=== PATIENT | male | born 1975 | race Caucasian/White ===

== ENCOUNTER 2019-08-16 23:40 | Emergency (ER) | payer SELFPAY ==
--- NOTE | 2019-08-17 00:10 | ED ---
Throat Pain/Nasal Congestion - HPI Summary HPI Summary: Patient presents with right side facial swelling 3 days. Concern for dental abscess. Patient has history of bad dental hygiene and multiple dental caries. Denies trauma, known fever, cough, sore throat, CP, SOB, N/V/D, abdominal pain , change in urine, change in BM. - History of Current Complaint Chief Complaint: EDDentalPain Time Seen by Provider: 08/17/19 00:08 Hx Obtained From: Patient Onset/Duration: Gradual Onset, Lasting Days Severity: Moderate Associated Signs And Symptoms: Positive: Negative Cough: None - Allergies/Home Medications Allergies/Adverse Reactions: Allergies Allergy/AdvReac Type Severity Reaction Status Date / Time No Known Allergies Allergy Verified 08/16/19 23:43 Home Medications: Home Medications Acetaminophen 625 mg PO ONCE 08/17/19 [History Confirmed 08/17/19] PMH/Surg Hx/FS Hx/Imm Hx Endocrine/Hematology History: Denies: Hx Anticoagulant Therapy Cardiovascular History: Denies: Hx Pacemaker/ICD History: Denies: Hx Dialysis Sensory History: Denies: Hx Eye Prosthesis Opthamlomology History: Denies: Hx Legally Blind EENT History: Denies: Hx Deafness Infectious Disease History: No Infectious Disease History: Denies: Traveled Outside the [place] in Last 30 Days - Family History Known Family History: Negative: Non-Contributory - Social History Alcohol Use: Occasionally Hx Substance Use: Yes - former IV drug user. Stopped years ago. Hx Tobacco Use: No Review of Systems Constitutional: Negative Eyes: Negative ENT: Other Cardiovascular: Negative Respiratory: Negative Gastrointestinal: Negative Genitourinary: Negative Musculoskeletal: Negative Skin: Negative Neurological: Negative Psychological: Normal All Other Systems Reviewed And Are Negative: Yes Physical Exam - Summary Physical Exam Summary: Swelling to right side posterior jaw. No intraoral lesions, apical abscess noted. No intraoral lesions noted. Multiple dental caries. No evidence of mastoiditis. ENT exam unremarkable. Triage Information Reviewed: Yes Vital Signs On Initial Exam: Initial Vitals Temp Pulse Resp BP Pulse Ox 102 F 134 15 151/99 98 08/16/19 23:42 08/16/19 23:42 08/16/19 23:42 08/16/19 23:42 08/16/19 23:42 Vital Signs Reviewed: Yes Appearance: Positive: Well-Appearing Skin: Positive: Warm Head/Face: Positive: Normal Head/Face Inspection Eyes: Positive: Normal ENT: Positive: Normal ENT inspection Neck: Positive: Supple Respiratory/Lung Sounds: Positive: Clear to Auscultation Cardiovascular: Positive: Normal Abdomen Description: Positive: Nontender Musculoskeletal: Positive: Normal Neurological: Positive: Normal Psychiatric: Positive: Normal AVPU Assessment: Alert - Mary Coma Scale Best Eye Response: 4 - Spontaneous Best Motor Response: 6 - Obeys Commands Best Verbal Response: 5 - Oriented Coma Scale Total: 15 Procedures - Sedation Patient Received Moderate/Deep Sedation with Procedure: No Diagnostics - Vital Signs Vital Signs Temp Pulse Resp BP Pulse Ox 08/16/19 23:42 102 F 134 15 151/99 98 - Laboratory Result Diagrams: 08/17/19 00:38 08/17/19 00:38 Lab Statement: Any lab studies that have been ordered have been reviewed, and results considered in the medical decision making process. Re-Evaluation - Re-Evaluation First Eval Re-Evaluation Time: 03:38 Change: Improved Comment: At 03:38, patient is sitting on the bed comfortably. The swelling and erythema of the parotid is improved. Patient states the swelling has lessened since being in the ED. EENT Course/Dx - Course Course Of Treatment: Patient presents with right side facial swelling 3 days. Concern for dental abscess. Patient has history of bad dental hygiene and multiple dental caries. Denies trauma, known fever, cough, sore throat, CP, SOB , N/V/D, abdominal pain, change in urine, change in BM. Febrile 102 in triage. Mildly tachycardic. Vital signs otherwise within normal limits. WBC 13.3. CRP 71. Potassium 3.2. 40 mEq of potassium by mouth administered. Maxillofacial CT with contrast positive for right parotid sialolith adenitis secondary to an obstructing stone located in the distal aspect of the parotid duct. The stone measures 1.1 cm in length and 6 mm in width. Associated inflammation of the right parotid gland and adjacent tissues. Associated cervical adenopathy. No lymph node necrosis. Multiple carious teeth with associated periapical lucency. No associated walled off fluid collection within the right parotid gland. Abnormal thickening of the right latissimus muscle. Extensive subcutaneous inflammation in the right side of the cheek overlying the parotid gland extending into the jaw. Patient mentioned chest pain after application of morphine, and former history of IV drug use. EKG and troponins were obtained. All negative. EKG sinus rhythm, no prior file. No ENT coverage. Phone call out to Dr Liu ENT at [facility]. - Diagnoses Provider Diagnoses: Parotitis, Calculus of parotid gland duct Discharge ED - Sign-Out/Discharge Documenting (check all that apply): Sign-Out Patient Signing out patient TO: Kerry Schultz - Discharge Plan Condition: Stable Referrals: [facility] [Outside] - Billing Disposition and Condition Condition: STABLE
[2019-08-17] MEDS ORDERED: Morphine 4 MG/ML VIAL (1 ml) 4 MG/ML VIAL IV ONE (00:17)
[2019-08-17] MEDS ORDERED: Ondansetron INJ* 2 MG/ML VIAL IV ONE (00:17)
[2019-08-17] MEDS ORDERED: Ibuprofen ADULT LIQ* 600 MG/30 ML UDC PO ONE (00:17)
[2019-08-17] MEDS ORDERED: NS 0.9% 1000 ML** 1,000 ML IV ONE (00:18)
[2019-08-17] MEDS ORDERED: Ibuprofen TAB* 600 MG ONE (00:44)
[2019-08-17] MEDS ORDERED: Ibuprofen TAB* 600 MG PO ONE (00:49)
[2019-08-17 00:54] LABS: ABS Lymphocytes 0.9 10^3/ul (1.0-4.8); ABS Monocytes 0.3 10^3/ul (0-0.8); ABS Neutrophils 12.1 10^3/ul (1.5-7.7); Eosinophil % 0.3 %; Hematocrit 44 % (42-52); Hemoglobin 15.2 g/dL (14.0-18.0); Lymphocyte % 6.6 %; Mean Corpuscular HGB Conc 35 g/dL (31-36); Mean Corpuscular Hemoglobin 30 pg (27-31); Mean Corpuscular Volume 86 fL (80-94); Mean Platelet Volume 7.8 fL (7.4-10.4); Platelet Count 215 10^3/uL (150-450); Red Cell Distribution Width 13 % (10-15); White Blood Count 13.3 10^3/uL (3.5-10.8)
[2019-08-17 01:06] LABS: Albumin 4.6 g/dL (3.2-5.2); Albumin/Globulin Ratio 1.3 (1-3); BUN/Creatinine Ratio 10.2 (8-20); C Reactive Protein 71.83 mg/L (<8.01); Calcium 9.3 mg/dL (8.6-10.3); EGFR African American 114.4 (>60); EGFR Non-African American 94.5 (>60); Globulin 3.6 g/dL (2-4); Potassium 3.2 mmol/L (3.5-5.0); Total Bilirubin 1.1 mg/dL (0.2-1.0); Total Protein 8.2 g/dL (6.4-8.9)
[2019-08-17] MEDS ORDERED: Iohexol 300* (CONTRAST) 10 ML SDV IV ONE (01:17)
[2019-08-17] MEDS ORDERED: Potassium Chlor TAB* 20 MEQ TAB.ER PO ONE (02:19)
[2019-08-17 03:02] LABS: Urine Appearance Clear; Urine Bilirubin Negative (Negative); Urine Blood 1+ (Negative); Urine Color Yellow; Urine Glucose Negative (Negative); Urine Ketones 1+ (Negative); Urine Nitrite Negative (Negative); Urine Protein Negative (Negative); Urine Specific Gravity 1.026 (1.010-1.030); Urine Urobilinogen Positive (Negative)
[2019-08-17 03:10] LABS: Urine Bacteria Absent (Absent); Urine Red Blood Cell Trace(0-2/hpf) (Absent); Urine White Blood Cell Absent (Absent)
[2019-08-17 03:16] LABS: Troponin I 0.01 ng/mL (<0.03)
[2019-08-17 03:19] LABS: Urine Benzodiazepine Screen None Detected (None Detect); Urine Opiates Screen Presumptive Positive (None Detect)
--- NOTE | 2019-08-17 03:54 | ED ---
Progress - Progress Note Progress Note: Patient is a sign-out at 02:30 on 08/17/19 from TY Arriaza to Dr. Kerry Schultz MD at shift change, pending further workup and disposition. At 03:38, patient is sitting on the bed comfortably. The swelling and erythema of the parotid is improved. Patient states the swelling has lessened since being in the ED. In the ED course, patient was given ibuprofen 600 mg PO and Flagyl 500 mg IVPB. At 04:39, Dr. Sully Liu at [facility] recommends the patient follow up in outpatient and be given IV antibiotics. Patient will be discharged with a diagnosis of parotitis and sialoidenitis. Follow up with Dr. Liu. Re-Evaluation - Re-Evaluation First Eval Re-Evaluation Time: 03:38 Change: Improved Comment: At 03:38, patient is sitting on the bed comfortably. The swelling and erythema of the parotid is improved. Patient states the swelling has lessened since being in the ED. Course/Dx - Course Course Of Treatment: Patient is a sign-out at 02:30 on 08/17/19 from TY Arriaza to Dr. Kerry Schultz MD at shift change, pending further workup and disposition. At 03:38, patient is sitting on the bed comfortably. The swelling and erythema of the parotid is improved. Patient states the swelling has lessened since being in the ED. In the ED course, patient was given ibuprofen 600 mg PO and Flagyl 500 mg IVPB. At 04:39, Dr. Sully Liu at [facility] recommends the patient follow up in outpatient and be given IV antibiotics. Patient will be discharged with a diagnosis of parotitis and sialoidenitis. Follow up with Dr. Liu. - Diagnoses Provider Diagnoses: Parotitis, Calculus of parotid gland duct, Sialoadenitis - Provider Notifications Discussed Care Of Patient With: Sully Liu - At 04:39, Dr. Sully Liu at [facility] recommends the patient follow up in outpatient and be given IV antibiotics. Time Discussed With Above Provider: 04:39 Instructed by Provider To: Have Pt Call For Appt. Discharge ED - Sign-Out/Discharge Documenting (check all that apply): Patient Departure - Discharge, Receiving Sign-Out Receiving patient FROM: David Dallas - Patient is a sign-out at 02:30 on from TY Arriaza to Dr. Kerry Schultz MD at shift change, pending further workup and disposition. - Discharge Plan Condition: Stable Disposition: HOME Prescriptions: Amoxicillin/Clavulanate TAB* [Augmentin TAB 875*] 875 mg PO BID 10 Days #20 tab Patient Education Materials: Sialoadenitis (ED) Print Language: DIVEHI Referrals: [facility] [Outside] Additional Instructions: Follow-up with Dr. Liu, ENT. Call her office at [phone] today to schedule an appointment. - Billing Disposition and Condition Condition: STABLE Disposition: Home - Attestation Statements Document Initiated by Gricelibe: Yes Documenting Scribe: Theresa Mariee Provider For Whom Scribe is Documenting (Include Credential): Kerry Lord MD Scribe Attestation: I, Theresa Mariee, scribed for Kerry Schultz MD on 08/17/19 at 0708. Scribe Documentation Reviewed: Yes Provider Attestation: The documentation as recorded by the Theresa cortez accurately reflects the service I personally performed and the decisions made by me, Kerry Schultz MD Status of Scribe Document: Viewed
[2019-08-17] MEDS ORDERED: metroNIDAZOLE IV 500 MG/100ML* 500 MG/100 ML BAG IVPB ONE (04:42)
[2019-08-17] MEDS ORDERED: CEFUROXIME IVPB SCH (05:30)
[2019-08-17] MEDS ORDERED: NS 0.9% IVPB SCH (05:30)
[2019-08-17 07:27] VITALS: BP 131/73
--- NOTE | 2019-08-18 01:13 | ED ---
Imaging and Labs Follow Up Follow Up Type: Labs/Cultures Labs/Culture Result: Blood cultures returned showing gram-positive cocci possibly strep 2. Patient was given Augmentin. Awaiting culture and sensitivity. Patient Communication/Plan: Awaiting culture and sensitivity report. Provider Diagnoses: Parotitis, Calculus of parotid gland duct, Sialoadenitis
== END 2019-08-17 07:33 | disposition home or self-care (01) ==
LOC: ED 23:40
DX: K11.20 Sialoadenitis, unspecified (principal); K11.5 Sialolithiasis
CPT/HCPCS: 36415; 70487; 80053; 80307; 80320; 81003; 81015; 83605; 84484; 85025; 86140; 87040; 93005; 96361; 96365; 96367; 96375; 99284; A9270-GY; G0480; J0697; J2270; J2405; Q9967

== ENCOUNTER 2019-08-19 16:30 | Inpatient (IN) | payer SELFPAY ==
--- NOTE | 2019-08-19 17:01 | ED ---
Throat Pain/Nasal Congestion - HPI Summary HPI Summary: Patient was seen here on 08/17 facial swelling and pain x 3 days. Diagnosed with parotiditis, sialoadenitis, and calculus of parotid duct. [facility] at [facility] was consulted, and patient was discharged home on by mouth antibiotics. Blood cultures came back positive for Streptococcus, patient was called and has return to the hospital. Complains of increased right-sided facial swelling, headache, decreased by mouth intake due to increased swelling. Denies any other symptoms, pain or injuries at this time. Medical history is none. Pending appointment with [facility] next week. States former IV drug user, but has not used in years. Brother confirms this. - History of Current Complaint Chief Complaint: EDDentalPain Time Seen by Provider: 08/19/19 16:40 Hx Obtained From: Patient, Family/Sewing Supervisor Onset/Duration: Gradual Onset, Lasting Days Severity: Moderate Associated Signs And Symptoms: Positive: Negative Cough: None - Allergies/Home Medications Allergies/Adverse Reactions: Allergies Allergy/AdvReac Type Severity Reaction Status Date / Time No Known Allergies Allergy Verified 08/19/19 16:34 PMH/Surg Hx/FS Hx/Imm Hx Endocrine/Hematology History: Denies: Hx Anticoagulant Therapy, Hx Diabetes Cardiovascular History: Denies: Hx Hypertension, Hx Pacemaker/ICD History: Denies: Hx Dialysis, Hx Renal Disease Sensory History: Denies: Hx Eye Prosthesis, Hx Legally Blind, Hx Deafness Opthamlomology History: Denies: Hx Eye Prosthesis, Hx Legally Blind EENT History: Denies: Hx Deafness Neurological History: Denies: Hx Dementia Infectious Disease History: No Infectious Disease History: Denies: Traveled Outside the [place] in Last 30 Days - Family History Known Family History: Negative: Non-Contributory - Social History Alcohol Use: Occasionally Hx Substance Use: Yes - former IV drug user. Stopped years ago. Substance Use Type: Reports: None Hx Tobacco Use: No Smoking Status (MU): Former Smoker Review of Systems Constitutional: Negative Eyes: Negative ENT: Other Cardiovascular: Negative Respiratory: Negative Gastrointestinal: Negative Genitourinary: Negative Musculoskeletal: Negative Skin: Negative Positive: Headache Psychological: Normal All Other Systems Reviewed And Are Negative: Yes Physical Exam - Summary Physical Exam Summary: Right-sided lower facial swelling. No evidence of intraoral abscess. Limited range of motion of jaw. Triage Information Reviewed: Yes Vital Signs On Initial Exam: Initial Vitals Temp Pulse Resp BP Pulse Ox 97.9 F 86 15 171/116 98 08/19/19 16:32 08/19/19 16:32 08/19/19 16:32 08/19/19 16:32 08/19/19 16:32 Vital Signs Reviewed: Yes Appearance: Positive: Well-Appearing Skin: Positive: Warm Head/Face: Positive: Normal Head/Face Inspection Eyes: Positive: Normal ENT: Positive: Other Dental: Positive: Gross Decay/Caries @ Neck: Positive: Supple Respiratory/Lung Sounds: Positive: Clear to Auscultation Cardiovascular: Positive: Normal Abdomen Description: Positive: Nontender Musculoskeletal: Positive: Normal Neurological: Positive: Normal Psychiatric: Positive: Normal AVPU Assessment: Alert - Mary Coma Scale Best Eye Response: 4 - Spontaneous Best Motor Response: 6 - Obeys Commands Best Verbal Response: 5 - Oriented Coma Scale Total: 15 Procedures - Sedation Patient Received Moderate/Deep Sedation with Procedure: No Diagnostics - Vital Signs Vital Signs Temp Pulse Resp BP Pulse Ox 08/19/19 16:32 97.9 F 86 15 171/116 98 - Laboratory Result Diagrams: 08/19/19 17:12 08/19/19 17:12 Lab Statement: Any lab studies that have been ordered have been reviewed, and results considered in the medical decision making process. EENT Course/Dx - Course Course Of Treatment: Patient was seen here on 08/17 facial swelling and pain x 3 days. Diagnosed with parotiditis, sialoadenitis, and calculus of parotid duct. ENT at [facility] was consulted, and patient was discharged home on by mouth antibiotics. Blood cultures came back positive for Streptococcus, patient was called and has return to the hospital. Complains of increased right -sided facial swelling, headache, decreased by mouth intake due to increased swelling. Denies any other symptoms, pain or injuries at this time. Medical history is none. Pending appointment with [facility] ENT next week. Elevated BP in triage at 171/116. Vital signs otherwise within normal limits. WBC 10, improved from prior visits 13.3. CRP 141. Labs otherwise unremarkable. Admitted to hospitalist Dr. Wells. ENT Dr. Cordova will consult. - Diagnoses Provider Diagnoses: Bacteremia, Parotitis, Sialoadenitis, Calculus of parotid gland duct Discharge ED - Sign-Out/Discharge Documenting (check all that apply): Patient Departure - Discharge Plan Condition: Stable Disposition: ADMITTED TO [facility] Referrals: No Primary Care Phys,NOPCP [Primary Care Provider] - - Billing Disposition and Condition Condition: STABLE Disposition: Admitted to [facility]
[2019-08-19] MEDS: NS 0.9% 1000 ML** 2,000 ML IV ONE (17:19)
[2019-08-19] MEDS ORDERED: Morphine 4 MG/ML VIAL (1 ml) 4 MG/ML VIAL IV ONE (17:21)
[2019-08-19] MEDS ORDERED: Ondansetron INJ* 2 MG/ML VIAL IV ONE (17:21)
[2019-08-19] MEDS ORDERED: Cefepime(*) 2 GM in NS 0.9% 50 ML* 50 ML IVPB ONE (17:21)
[2019-08-19 17:25] LABS: ABS Eosinophils 0.1 10^3/ul (0-0.6); ABS Lymphocytes 1.5 10^3/ul (1.0-4.8); ABS Monocytes 0.9 10^3/ul (0-0.8); ABS Neutrophils 7.4 10^3/ul (1.5-7.7); Eosinophil % 0.6 %; Hematocrit 47 % (42-52); Hemoglobin 15.9 g/dL (14.0-18.0); Lymphocyte % 15.3 %; Mean Corpuscular HGB Conc 34 g/dL (31-36); Mean Corpuscular Hemoglobin 29 pg (27-31); Mean Corpuscular Volume 87 fL (80-94); Mean Platelet Volume 7.7 fL (7.4-10.4); Nucleated Red Blood Cells % 0.1; Platelet Count 250 10^3/uL (150-450); Red Blood Count 5.41 10^6 /uL (4.18-5.48); Red Cell Distribution Width 13 % (10-15)
[2019-08-19] MEDS ORDERED: NS 0.9% 50 ML* 50 ML ONE (17:26)
[2019-08-19 17:34] LABS: Activated Partial Thrombo Time 36.2 seconds (26.0-38.0); INR 1.23 (0.82-1.09)
[2019-08-19 17:39] LABS: Albumin 4.5 g/dL (3.2-5.2); C Reactive Protein 141.38 mg/L (<8.01); Calcium 9.5 mg/dL (8.6-10.3); EGFR African American 122.4 (>60); EGFR Non-African American 101.1 (>60); Globulin 4.3 g/dL (2-4); Potassium 4.1 mmol/L (3.5-5.0); Total Bilirubin 0.7 mg/dL (0.2-1.0); Total Protein 8.8 g/dL (6.4-8.9)
[2019-08-19 17:41] LABS: Troponin I 0.01 ng/mL (<0.03)
[2019-08-19] MEDS ORDERED: Cefepime 2 GM in Dextrose(*) 2 GM/50 ML BAG IV ONE (18:00)
[2019-08-19] MEDS ORDERED: Lidocaine 2% w/ EPI 1:200,000* 20 ML SDV VIAL ONE (18:22)
[2019-08-19] MEDS: Ketorolac INJ* 30 MG/ML 1 ML VIAL IV PUSH PRN (18:26)
[2019-08-19 18:28] LABS: Urine Appearance Clear; Urine Bilirubin Negative (Negative); Urine Blood 2+ (Negative); Urine Color Yellow; Urine Glucose Negative (Negative); Urine Ketones 2+ (Negative); Urine Nitrite Negative (Negative); Urine Protein Negative (Negative); Urine Urobilinogen Positive (Negative)
[2019-08-19] MEDS ORDERED: Lidocaine 2% w/ EPI 1:200,000* 20 ML SDV VIAL INJ ONE (18:34)
[2019-08-19 18:37] LABS: Urine Bacteria Absent (Absent); Urine Red Blood Cell Trace(0-2/hpf) (Absent); Urine White Blood Cell Trace(0-5/hpf) (Absent)
--- NOTE | 2019-08-19 19:24 | HP ---
CC: Dr. Cordova HISTORY AND PHYSICAL: DATE OF ADMISSION: 08/19/19 TIME OF EVALUATION: 5:20 p.m. PRIMARY CARE PROVIDER: The patient has no primary care provider. CONSULTING ENT: Dr. Cordova. CHIEF COMPLAINT: "They told me to come back." HISTORY OF PRESENT ILLNESS: Mr. Denise is a 44-year-old male with a past medical history of prior I V drug use, who initially presented to the emergency room on 08/17/19 with what he thought was a dent al infection. He had complaints of right- sided facial swelling associated with pain. During that v isit, he was found to be febrile with a temperature of 102, his CBC showed a WBC of 13.3, and he had a maxillofacial CT that showed a right parotid sialadenitis secondary to an obstructing stone located in the distal aspect of the parotid duct. This stone measures 1.1 cm in length and 6 mm in width. Associated inflammation of the right parotid gland and to adjacent tissues. There is associated cerv ical adenopathy. No lymph node necrosis. There were also multiple carious teeth with associated debra apical lucency. That day, we did not have ENT coverage in the ED, so [facility] was contacted and after discussing the case with ENT there, the recommendation was for the patient to be discharged wi th p.o. antibiotics and to follow up with ENT as an outpatient. The patient was sent home on in and he states that he continued to have significant pain. He states that he has not been able to take any solid food due to pain. He had no further episodes of fever or chills, and blood cultures s ent on his first ED visit 10/20 bottle grew Streptococcus anginosus and for that reason the patient was called to return to the emergency room for further evaluation and treatment. The patient states that he had a history of IV drug use, but that he has not injected any drugs for a t least 6 years. PAST MEDICAL HISTORY: History of IV drug use. The patient states that he used to inject heroin and cocaine and he used Suboxone that he bought on the streets and he was able to stop using drugs. He s tates that he still smokes marijuana, but has not used any other drugs for the past 6 years. He stat es that he was a smoker since his teenage years and he quit around the same time 6 years ago. He den ies alcohol use. MEDICATION LIST: 1. Augmentin 875 mg p.o. b.i.d. 2. Acetaminophen [id number]. FAMILY HISTORY: He states that his mother had a history of diabetes. He does not recall any other m edical problems in the family. SOCIAL HISTORY: History of drug use and tobacco abuse as above. He denies alcohol use. 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 Surrogate decision maker is his brother, Osvaldo Denise, phone number [phone]. REVIEW OF SYSTEMS: A 14-point review of systems was performed and all the pertinent negative and pos itive findings are in the HPI. PHYSICAL EXAMINATION GENERAL: The patient is a middle-aged gentleman, who appears older than his stated age, sitting up i n bed, in no acute distress. VITAL SIGNS: Temperature 97.9, heart rate is 86, respiratory rate is 15, oxygen saturation 98% on ro om air, blood pressure is 150/95. HEENT: The patient has significant right-sided facial edema around the parotid area with significant pain on palpation. On inspection of the oral cavity, the patient has very poor dentition with multi ple teeth with caries, broken and very foul-smelling. I do not identify any drainage at this point. NECK: He has tender cervical adenopathy. CHEST: Breath sounds present bilaterally with no added sounds. CVS: Normal S1, S2. Regular rate and rhythm. I could not identify any murmurs. ABDOMEN: Obese, soft. Bowel sounds present. EXTREMITIES: No edema. NEURO: He is alert and oriented x3. Able to move all 4 extremities. SKIN: I do not identify any rashes. No Osler's nodes. DIAGNOSTIC STUDIES/LAB DATA: The patient had a CBC that showed a WBC of 10, hemoglobin of 15.9, hem atocrit of 47, platelets of 250 with 74% neutrophils. This is improved when compared to his CBC from 08/17/19. At that time, he had a white cell count of 13.3. Chemistry showed a sodium of 134, potas sium of 4.1, chloride of 98, bicarb of 25, BUN of 10, creatinine of 0.83, glucose of 106, lactic acid is 0.9, calcium is 9.5. LFTs are normal. His CRP today is 141 and it was 71 on 08/17/19. There is no urinalysis today, but the one done on 08/17/19 had 1+ ketones, 1+ blood, and positive urobilinoge n. Urine toxicology done at that time was positive for urine opiates and cannabinoids, but the patie nt did receive morphine during that visit. Four out of four blood culture bottles grew Streptococcus anginosus resistant to tetracycline only. Maxillofacial CT done on 08/17/19 showed abnormal appearance to the right parotid gland with duct dil ation and a calcified stone measuring 1.1 cm in length with abnormal enlargement of the right parotid gland. No walled-off fluid collection was described. ASSESSMENT AND PLAN: Mr. Denise is a 44-year-old male with a prior history of IV drug use, who init ially presented to the emergency room with concern for a possible dental infection, found to have a p arotid gland stone with parotitis, discharged home with oral antibiotics, later called to return to [facility] emergency room due to positive blood cultures. 1. Streptococcus anginosus bacteremia. At this point, the patient does not meet sepsis criteria. S treptococcus anginosus can be associated with dental infection as well as his parotitis. He will be started on cefepime IV and we will repeat blood cultures. He does not have a murmur on physical exam ination, but we will check a transthoracic echocardiogram. The patient has no complaints of shortnes s of breath and no signs of airway compromise. He states that he is not able to eat because he canno t chew solid food, but he has liquids and creamy foods at home, so he will be continued on a full liq uid diet for now. 2. Parotitis with sialolith. ENT was contacted by ED and they will see the patient in consultation. As per ED provider report, there is no indication for any emergent surgical procedure at this time. We will continue IV antibiotics and symptomatic treatment. 3. Multiple dental caries. We will treat the patient's parotitis with antibiotics, but he will need to have his dentition addressed as an outpatient. 4. Elevated blood pressure. The patient denies a history of hypertension, but he has no primary car e provider and has not seen a physician in years. At this point, we will monitor his blood pressure as the elevation may be secondary to pain. No antihypertensives will be started for now. 5. DVT prophylaxis: The patient has a score of 2 on the DVT Prophylaxis Risk Assessment Guide and h e will be started on subcutaneous heparin. 6. Code status is full. TIME SPENT: Approximately 45 minutes was spent with the patient's interview, medical records review, physical examination to complete this admission, more than half of this time was spent [id number] with the patient and coordination of care. [id number]/[facility] #: [id number]
[2019-08-19] MEDS ORDERED: diPHENhydraMINE IV* 50 MG/ML 1 ml VIAL (BENADRYL) IV ONE (19:27)
[2019-08-19] MEDS: NS 0.9% 1000 ML** 1,000 ML IV SCH (20:06)
[2019-08-19] MEDS: Heparin VIAL(*) 5000 UNITS/ML VIAL (FIVE THOUSAND) SUBCUT SCH (22:35)
[2019-08-19] MEDS: Acetaminophen TAB* 325 MG PO PRN (23:35)
[2019-08-20] MEDS: Cefepime 2 GM in Dextrose(*) 2 GM/50 ML BAG IV SCH ×2 (05:47→18:25)
[2019-08-20] MEDS: Heparin VIAL(*) 5000 UNITS/ML VIAL (FIVE THOUSAND) SUBCUT SCH ×3 (05:52→22:21)
[2019-08-20] MEDS: Acetaminophen TAB* 325 MG PO PRN (06:28)
[2019-08-20 06:48] LABS: Troponin I 0.01 ng/mL (<0.03)
[2019-08-20 06:58] LABS: ABS Basophils 0.1 10^3/ul (0-0.2); ABS Eosinophils 0.1 10^3/ul (0-0.6); ABS Lymphocytes 2.4 10^3/ul (1.0-4.8); ABS Monocytes 0.9 10^3/ul (0-0.8); ABS Neutrophils 3.9 10^3/ul (1.5-7.7); Eosinophil % 1.3 %; Hematocrit 39 % (42-52); Hemoglobin 13.2 g/dL (14.0-18.0); Mean Corpuscular HGB Conc 34 g/dL (31-36); Mean Corpuscular Hemoglobin 30 pg (27-31); Mean Corpuscular Volume 87 fL (80-94); Mean Platelet Volume 8.2 fL (7.4-10.4); Nucleated Red Blood Cells % 0.1; Platelet Count 223 10^3/uL (150-450); Red Blood Count 4.47 10^6 /uL (4.18-5.48); Red Cell Distribution Width 13 % (10-15); White Blood Count 7.3 10^3/uL (3.5-10.8)
[2019-08-20 07:04] LABS: Calcium 8.3 mg/dL (8.6-10.3); Potassium 3.8 mmol/L (3.5-5.0)
[2019-08-20 07:10] LABS: BUN/Creatinine Ratio 11.4 (8-20); C Reactive Protein 104.42 mg/L (<8.01); EGFR African American 129.5 (>60)
[2019-08-20] MEDS: NS 0.9% 1000 ML** 1,000 ML IV SCH ×2 (07:31→22:21)
[2019-08-20] MEDS ORDERED: Influenza VAC *QUAD* 2019-20* 0.5 ML SYRINGE IM ONE (09:00)
--- NOTE | 2019-08-20 10:04 | PN ---
Subjective Date of Service: 08/20/19 Interval History: HOSPITALIST PROGRESS NOTE Patient seen and examined at bedside. Care reviewed and d/w Jaye Del Valle RN. He feels a little better today. Right parotid area pain still present, but less intense. Tolerating full liquid diet, doesn't feel ready for solids yet. Family History: Unchanged from Admission Social History: Unchanged from Admission Past Medical History: Unchanged from Admission Objective Active Medications: Acetaminophen (Tylenol Tab*) 650 mg PO Q6H PRN PRN Reason: MILD PAIN or TEMP > 100.4 Last Admin: 08/20/19 06:28 Dose: 650 mg Heparin Sodium (Porcine) (Heparin Vial(*)) 5,000 units SUBCUT Q8HR [facility] Last Admin: 08/20/19 05:52 Dose: 5,000 units Cefepime HCl (Maxipime 2 Gm In Dextrose Duplex (*)) 2 gm in 50 mls @ 100 mls/ hr IV Q12H [facility] Last Admin: 08/20/19 05:47 Dose: 100 mls/hr Sodium Chloride (Ns 0.9% 1000 Ml) 1,000 mls @ 100 mls/hr IV PER RATE [facility] Last Admin: 08/20/19 07:31 Dose: 100 mls/hr Ketorolac Tromethamine (Toradol Inj*) 30 mg IV PUSH Q6H PRN PRN Reason: PAIN - MODERATE Stop: 08/25/19 17:25 Last Admin: 08/19/19 18:26 Dose: 30 mg Vital Signs - 8 hr 08/20/19 08/20/19 03:15 07:15 Temperature 98.2 F 98.3 F Pulse Rate 74 71 Respiratory 16 14 Rate Blood Pressure 126/74 128/71 (mmHg) O2 Sat by Pulse 100 97 Oximetry Oxygen Devices in Use Now: None Appearance: Middle aged gentleman sitting up in bed in NAD Eyes: No Scleral Icterus Ears/Nose/Mouth/Throat: Mucous Membranes Moist, - - Right parotid area edema is less intense than yesterday, still cleaner tube to palpation, very poor dentition Neck: Trachea Midline Respiratory: Symmetrical Chest Expansion and Respiratory Effort, Clear to Auscultation Cardiovascular: NL Sounds; No Murmurs; No JVD, RRR Lymphatic: - - Tender cervical adenopathy on the right Neurological: Alert and Oriented x 3, NL Muscle Strength and Tone Result Diagrams: 08/20/19 06:04 08/20/19 06:04 Assess/Plan/Problems-Billing Assessment: Mr Denise is a 44yo M with PMH of prior IVDA, who presented to ED with c/o right parotid area pain and edema, found to have parotitis and Streptococcus bacteremia. - Patient Problems (1) Bacteremia due to Streptococcus Comment: - Source is likely parotitis and dental infection. - Follow up repeat blood cultures. - Transthoracic echo tomorrow. - ID consult. - Continue Cefepime. (2) Parotitis Comment: - ENT input appreciated - sialolith was removed yesterday with significant purulent drainage. Recommended at least 10 days of antibiotics. - Continue Cefepime. (3) DVT prophylaxis Comment: - SQ heparin (4) Full code status Status and Disposition: Inpatient.
[2019-08-21] MEDS: Heparin VIAL(*) 5000 UNITS/ML VIAL (FIVE THOUSAND) SUBCUT SCH ×3 (05:56→22:07)
[2019-08-21] MEDS: Cefepime 2 GM in Dextrose(*) 2 GM/50 ML BAG IV SCH (05:56)
[2019-08-21] MEDS: NS 0.9% 1000 ML** 1,000 ML IV SCH ×2 (11:06→23:27)
--- NOTE | 2019-08-21 12:52 | CONS ---
CONSULTATION REPORT: DATE OF CONSULT: 08/21/19 REQUESTING PHYSICIAN: Dr. Hauser. CONSULTING SERVICE: Infectious Disease. REASON FOR CONSULT: Bacteremia. IMPRESSION: 1. Right parotiditis and sialoadenitis with obstructing stone which has since been removed. Blood c ultures / growing Streptococcus anginosus. Followup cultures are negative. I suspect those are fa lse negative in the setting of oral antibiotic use. Distant spread of infection is a possibility inc luding infectious endocarditis or musculoskeletal infection. He does not have any spine pain or tend erness or any joint synovitis. He has no prosthetic material present. 2. History of injection drug use. 3. Poor dentition, multiple caries. RECOMMENDATIONS: Stop cefepime. Start ceftriaxone 2 g a day. A transthoracic echocardiogram was co mpleted this morning. If it is negative, we will need a transesophageal echocardiogram. HISTORY OF PRESENT ILLNESS: This is a 44-year-old man who 5 or 6 days ago developed fevers, chills, and rigors along with headache and then shortly thereafter developed some right face pain and swellin g. He was seen in the ER here on 08/17/19. A CT scan at that time showed a right parotid sialadenit is secondary to obstructing stone, distal parotid duct which was 1.1 cm in length. He was discharged on oral Augmentin, returned with persistence of symptoms despite a day and a half of Augmentin. Was admitted and had this stone extracted. He had a low- grade fever at admission. None since. His bl ood cultures taken yesterday are negative at 24 hours. Urine culture was negative. He does not have prosthetic material. He does not have any pain in his back or joints. He does not recall an infect ion requiring hospitalization in the past. PAST MEDICAL HISTORY: 1. Obesity. 2. History of injection drug use, in remission. MEDICATIONS: 1. Tylenol. 2. Heparin subcutaneous injection. 3. Cefepime 2 g IV twice daily. 4. Ketorolac injection. ALLERGIES: No known drug allergies. FAMILY HISTORY: Mother had diabetes. SOCIAL HISTORY: Past tobacco, no alcohol use. Currently not working. REVIEW OF SYSTEMS: All negative except as noted above to a 14-point review of systems. PHYSICAL EXAM: Vital Signs: Temperature is 37, heart rate 60, respiratory rate 20, blood pressure 1 42/89, oxygen saturation 99% on room air. General: He is awake, not in distress. Neurologic: He i s oriented x3, follows all commands. Moves all of his extremities. HEENT: There is no conjunctival hemorrhage. Oropharynx: He has multiple caries and teeth in various stages of decay with a rather fo ul odor. There is slight tenderness over the right parotid with trace edema. Neck is supple without mass. There is no tenderness in the anterior neck. Heart is regular rate and rhythm without murmurs , rubs, or gallops. Lungs are clear to auscultation bilaterally. Abdomen: Soft, nontender, nondist ended. There are bowel sounds present. Skin: There is no rash or splinter hemorrhage. Musculoskele prince: There is no spinous tenderness to palpation or joint synovitis. DIAGNOSTIC STUDIES/LAB DATA: White blood cell count 7, hemoglobin 13, platelets 223, creatinine is 0 .7. CRP 104, down from 141 on admission. Please see impressions and recommendations outlined above. Thanks for asking me to see Mr. Denise amarilis n consultation. [id number]/[facility] #: [id number]
--- NOTE | 2019-08-21 13:39 | PN ---
Subjective Date of Service: 08/21/19 Interval History: HOSPITALIST PROGRESS NOTE Patient seen and examined at bedside. Care reviewed and d/w Jaye Del Valle RN. He feels better today. Right sided facial swelling is less intense, as well as pain. Family History: Unchanged from Admission Social History: Unchanged from Admission Past Medical History: Unchanged from Admission Objective Active Medications: Acetaminophen (Tylenol Tab*) 650 mg PO Q6H PRN PRN Reason: MILD PAIN or TEMP > 100.4 Last Admin: 08/20/19 06:28 Dose: 650 mg Heparin Sodium (Porcine) (Heparin Vial(*)) 5,000 units SUBCUT Q8HR [facility] Last Admin: 08/21/19 05:56 Dose: 5,000 units Sodium Chloride (Ns 0.9% 1000 Ml) 1,000 mls @ 100 mls/hr IV PER RATE [facility] Last Admin: 08/21/19 11:06 Dose: 100 mls/hr Ceftriaxone Sodium 2 gm/ (Sodium Chloride) 100 mls @ 200 mls/hr IVPB Q24H [facility] Ketorolac Tromethamine (Toradol Inj*) 30 mg IV PUSH Q6H PRN PRN Reason: PAIN - MODERATE Stop: 08/25/19 17:25 Last Admin: 08/19/19 18:26 Dose: 30 mg Vital Signs - 8 hr 08/21/19 08/21/19 07:15 08:00 Temperature 98.5 F Pulse Rate 62 Respiratory 21 19 Rate Blood Pressure 142/89 (mmHg) O2 Sat by Pulse 99 Oximetry Oxygen Devices in Use Now: None Appearance: Pleasant middle aged gentleman sitting up in a chair in NAD Eyes: No Scleral Icterus Ears/Nose/Mouth/Throat: Mucous Membranes Moist, - - Mild right sided facial edema, much improved compared to admission. Very poor dentition Neck: Trachea Midline Respiratory: Symmetrical Chest Expansion and Respiratory Effort, Clear to Auscultation Cardiovascular: RRR - Normal S1 and S2 Abdominal: NL Sounds; No Tenderness; No Distention Lymphatic: - - Tender cervical adenopathy is present Neurological: Alert and Oriented x 3, NL Muscle Strength and Tone Result Diagrams: 08/20/19 06:04 08/20/19 06:04 Microbiology and Other Data: Microbiology 08/19/19 18:00 Urine Culture - Final Urine No Growth (<1,000 CFU/mL) 08/20/19 06:04 Aerobic Blood Culture - Preliminary Blood Venous No Growth Day 1 Anaerobic Blood Culture - Preliminary No Growth Day 1 08/20/19 05:56 Aerobic Blood Culture - Preliminary Blood Venous No Growth Day 1 Anaerobic Blood Culture - Preliminary No Growth Day 1 Assess/Plan/Problems-Billing Assessment: Mr Denise is a 44yo M with PMH of prior IVDA, who presented to ED with c/o right parotid area pain and edema, found to have parotitis and Streptococcus bacteremia. - Patient Problems (1) Bacteremia due to Streptococcus Comment: - Source is likely parotitis and dental infection. - Follow up repeat blood cultures show no growth so far. - Awaiting Transthoracic echo. - Awaiting ID consult. - Continue Cefepime. (2) Parotitis Comment: - ENT input appreciated - sialolith was removed yesterday with significant purulent drainage. Recommended at least 10 days of antibiotics. - Continue Cefepime. (3) DVT prophylaxis Comment: - SQ heparin (4) Full code status Status and Disposition: Inpatient.
--- NOTE | 2019-08-21 15:17 | ECHO ---
*[facility]* [place] [address] Fax #: [phone] Transthoracic Echocardiogram Patient: Regulo Denise : 1975 Study Date: 08/21/2019 Age: 44 Gender: M HR: 62 bpm Height: 70 in /177.8 cm BSA: 2.15 m^2 Weight: 214.6 lb /97.5 kg BMI: 30.8 kg/m^2 *Geology Teacher: * Theresa Baker [facility] *Referring Physician: * Carley ArmstrongReading Physician: * Lul Baker MD Indications: Bacteremia. History: Dental infection. Risk factors: Former tobacco use. Conclusions Summary: - Left ventricle: Systolic function is normal. The estimated ejection fraction is 55-60%. Wall motion is normal; there are no regional wall motion abnormalities. - Right ventricle: Systolic function is normal. - Mitral valve: There is trace regurgitation. - Aortic valve: There is no evidence of stenosis. - Tricuspid valve: There is no significant regurgitation. - Pericardium, extracardiac: There is no significant pericardial effusion. - Pulmonary arteries: Systolic pressure can not be accurately estimated. - Study data: No prior study is available for comparison. Study data: Transthoracic echocardiogram. Procedure: Transthoracic echocardiography was performed. Image quality was good. Complete 2D, spectral Doppler, and color flow Doppler. Location: Bedside. Patient status: Inpatient. Patient room number: 415 02. No prior study is available for comparison. Rhythm: Normal sinus rhythm. Findings Left ventricle: The cavity size is normal. Wall thickness is mildly increased. Systolic function is normal. The estimated ejection fraction is 55-60%. Wall motion is normal; there are no regional wall motion abnormalities. Left ventricular diastolic function parameters are normal. Right ventricle: The cavity size is normal. Systolic function is normal. Left atrium: The atrium is mildly dilated. Right atrium: The atrium is normal in size. Mitral valve: The leaflets are normal thickness. There is no evidence of a vegetation. There is no evidence of stenosis. There is trace regurgitation. Aortic valve: The leaflets are normal thickness. There is no evidence of a vegetation. There is no evidence of stenosis. There is no significant regurgitation. Tricuspid valve: The leaflets are normal thickness. There is no evidence of a vegetation. There is no evidence of stenosis. There is no significant regurgitation. Pulmonic valve: The leaflets are normal thickness. There is no evidence of a vegetation. There is no evidence of stenosis. There is no significant regurgitation. Aorta: The aortic root appears normal. The aortic arch appears normal. Pericardium: There is no significant pericardial effusion. Pulmonary arteries: Systolic pressure can not be accurately estimated. Systemic veins: Inferior vena cava: The vessel is normal in size. There is (>= 50%) respiratory change in the IVC dimension. Measurements Left ventricle Value Ref Aortic valve Value Ref RAE, LAX (L) 4.1 cm 4.2 - 5.8 Ginger diam, ED 2.0 cm ---- ESD, LAX 3.4 cm 2.5 - 4.0 Peak v, S 1.62 m/sec ---- FS, LAX (L) 19 % 25 - 43 VTI, S 35.0 cm ---- PW, ED, LAX (H) 1.1 cm 0.6 - 1.0 Mean grad, S 6.0 mm Hg ---- E', lat ginger, TDI 15.0 cm/sec >=10.0 Peak grad, S 10.0 mm Hg - --- E/e', lat ginger, 7 TDI Mitral valve Value Ref E', med ginger, TDI 11.9 cm/sec >=7.0 Peak E 0.99 m/sec - --- E/e', med ginger, 8 Peak A 0.73 m/sec ---- TDI Decel time 248 ms ---- E', avg, TDI 13.5 cm/sec Peak grad, D 3.9 mm Hg ---- E/e', avg, TDI 7 <=14 Peak E/A ratio 1.4 - --- LVOT Value Ref Pulmonic valve Value Ref Peak roland, S 1.26 m/sec Peak v, S 1.1 m/sec ---- Peak grad, S 6 mm Hg Peak grad, S 5.0 mm Hg ---- Mean grad, S 3 mm Hg Aortic root Value Ref Ventricular septum Value Ref Root diam 2.9 cm <4.3 IVS, ED (H) 1.2 cm 0.6 - 1.0 Root max diam, ED 2.9 cm <4.3 Right ventricle Value Ref Aortic arch Value Ref RAE, LAX 2.7 cm Arch diam 2.7 cm ---- RAE minor ax, A4C 2.8 cm 1.9 - 3.5 mid Decending aorta Value Ref Pacheco peak roland 0.86 m/sec ---- Left atrium Value Ref AP dim, ES 3.30 cm 3.00 - Inferior vena cava Value Ref 4.00 Diam 2.1 cm ---- ML dim, A4C 4.2 cm SI dim, A4C 5.5 cm Vol/bsa, ES, A/L (H) 38 ml/m^2 16 - 34 Right atrium Value Ref SI dim, ES 4.7 cm 3.4 - 5.3 ML dim, ES, A4C 3.4 cm 2.6 - 4.4 Estimated RAP 8 mm Hg Legend: (L) and (H) mery values outside specified reference range. Prepared and electronically signed by Lul Baker MD 08/21/2019 14:47
[2019-08-21] MEDS: cefTRIAXone(*) 2 GM in NS 0.9% 100 ML* 100 ML IVPB SCH (17:20)
[2019-08-22] MEDS: Heparin VIAL(*) 5000 UNITS/ML VIAL (FIVE THOUSAND) SUBCUT SCH (05:15)
[2019-08-22] MEDS ORDERED: Acetaminophen TAB* 325 MG PO PRN (07:58)
[2019-08-22] MEDS: Ketorolac INJ* 30 MG/ML 1 ML VIAL IV PUSH PRN (10:07)
--- NOTE | 2019-08-22 10:23 | PN ---
Progress Note - Progress Note Date of Service: 08/22/19 SOAP: Subjective: CC: Bacteremia HPI: Mr. Denise is a 44 yo male with PMH significant for obesity, and hx IVDU; who presented to the hospital with complaints of fever, chills, and headache. He was found to have a right parotid sialadentis secondary to an obstructing stone. S/P stone extraction. Denies fever, chills, chest pain, nausea, vomiting , diarrhea, back pain, joint pain. Reports continued headache. Objective: Vital Signs 08/22/19 08/22/19 08/22/19 03:38 07:15 08:00 Temperature 97.4 F 97.0 F Pulse Rate 58 69 Respiratory 16 14 16 Rate Blood Pressure 136/82 147/91 (mmHg) O2 Sat by Pulse 100 99 Oximetry Physical Exam: General: NAD, sitting up in bed Neurological: Alert and Oriented HEENT: Moist MM, poor dentition Cardiovascular: Heart rate regular Respiratory: Lung sounds clear bilateral Abdominal: Bowel sounds present; ABD soft, non tender and non distended MSK: No tenderness to the neck, back or spine Skin: No rash Laboratory Tests 08/19/19 08/20/19 08/20/19 17:12 06:04 06:04 WBC 7.3 Hgb 13.2 L Hct 39 L Plt Count 223 Sodium 135 Potassium 3.8 Chloride 107 Carbon Dioxide 21 L BUN 9 Creatinine 0.79 Glucose 88 C-Reactive Protein 141.38 H 104.42 H Microbiology 08/20/19 06:04 Aerobic Blood Culture - Preliminary Blood Venous No Growth Day 2 Anaerobic Blood Culture - Preliminary No Growth Day 2 08/20/19 05:56 Aerobic Blood Culture - Preliminary Blood Venous No Growth Day 2 Anaerobic Blood Culture - Preliminary No Growth Day 2 08/19/19 18:00 Urine Culture - Final Urine No Growth (<1,000 CFU/mL) Assessment: 1.Right parotiditis and sialoadenitis with obstructing stone. S/P stone extraction. Afebrile and no leukocytosis. CRP is trending down. 2. Streptococcus anginosus. Blood cultures from with 4/4 bottles positive. Repeat blood cultures from 08/20/19 with no growth, ? false negative in the setting of oral ABX use. No prosthetic material present. Afebrile and no leukocytosis. CRP is trending down. TTE negative. Concern for possible infectious endocarditis, SHARRI pending for today. 3. Poor dentition. 4. Obesity. BMI ~ 31 Plan: Continue Ceftriaxone 2 gm IV daily. SHARRI pending, final recommendation will be based on SHARRI results. Discussed with Dr. Nayeli Moss
--- NOTE | 2019-08-22 14:20 | PN ---
Subjective Date of Service: 08/22/19 Interval History: Regulo is doing well overnight, no fever, no chills, right parotid pain improving though still swollen. No chest pain, palpitation, SOB Objective Active Medications: Acetaminophen (Tylenol Tab*) 975 mg PO Q8H PRN PRN Reason: MILD PAIN or TEMP > 100.4 Enoxaparin Sodium (Lovenox(*)) 40 mg SUBCUT BEDTIME [facility] Ceftriaxone Sodium 2 gm/ (Sodium Chloride) 100 mls @ 200 mls/hr IVPB Q24H [facility] Last Admin: 08/21/19 17:20 Dose: 200 mls/hr Ketorolac Tromethamine (Toradol Inj*) 30 mg IV PUSH Q6H PRN PRN Reason: PAIN - MODERATE Stop: 08/25/19 17:25 Last Admin: 08/22/19 10:07 Dose: 30 mg Vital Signs - 8 hr 08/22/19 08/22/19 08/22/19 07:15 08:00 11:49 Temperature 97.0 F 97.8 F Pulse Rate 69 59 Respiratory 14 16 16 Rate Blood Pressure 147/91 152/87 (mmHg) O2 Sat by Pulse 99 100 Oximetry Oxygen Devices in Use Now: None Exam: Appearance: Pleasant middle aged gentleman sitting up in a chair in NAD Eyes: No Scleral Icterus Ears/Nose/Mouth/Throat: Mucous Membranes Moist, - - right sided facial edema, much improved compared to admission. Very poor dentition Neck: Trachea Midline Respiratory: Symmetrical Chest Expansion and Respiratory Effort, Clear to Auscultation Cardiovascular: RRR - Normal S1 and S2 Abdominal: NL Sounds; No Tenderness; No Distention Lymphatic: - - cervical adenopathy, non tender Neurological: Alert and Oriented x 3 Extremity: No Osler nodule, no splinter hemorrhage, no cyanosis. Result Diagrams: 08/20/19 06:04 08/20/19 06:04 Microbiology and Other Data: Microbiology 08/19/19 18:00 Urine Culture - Final Urine No Growth (<1,000 CFU/mL) 08/20/19 06:04 Aerobic Blood Culture - Preliminary Blood Venous No Growth Day 1 Anaerobic Blood Culture - Preliminary No Growth Day 1 08/20/19 05:56 Aerobic Blood Culture - Preliminary Blood Venous No Growth Day 1 Anaerobic Blood Culture - Preliminary No Growth Day 1 Assess/Plan/Problems-Billing Assessment: Mr Denise is a 44yo M with PMH of prior IVDA, who presented to ED with c/o right parotid area pain and edema, found to have parotitis and Streptococcus anginosus bacteremia likely from parotitis. He had sialolith removed and was on antibiotics since admission. - Patient Problems (1) Bacteremia due to Streptococcus Current Visit: Yes Status: Acute Code(s): R78.81 - BACTEREMIA; B95.5 - UNSP STREPTOCOCCUS THE CAUSE OF DISEASES CLASSD [facility] SNOMED Code(s): 921574679700 Comment: - Source is likely parotitis and dental infection. - Follow up repeat blood cultures show no growth so far. - TTE: normal, will do SHARRI today - If SHARRI normal, consider discharge with oral antibitotics - currently on iv ceftriaxone (08/21-08/25. cefepime 08/19-08/21), awaiting id plan for abx duration. (2) Parotitis Current Visit: Yes Status: Acute Code(s): K11.20 - SIALOADENITIS, UNSPECIFIED SNOMED Code(s): 46689044 Comment: - appreciate ENT input - sialolith was removed with significant purulent drainage. Recommended at least 10 days of antibiotics by ENT - Continue iv ceftriaxone as per id (3) DVT prophylaxis Current Visit: Yes Status: Acute Code(s): Z29.9 - ENCOUNTER FOR PROPHYLACTIC MEASURES, UNSPECIFIED SNOMED Code(s): 027440955 Comment: - SQ heparin (4) Full code status Current Visit: Yes Status: Acute Code(s): Z78.9 - OTHER SPECIFIED HEALTH STATUS SNOMED Code(s): 750221356 Status and Disposition: Inpatient Medicine. Attestation Documenting Resident: Qi Ortiz Supervising Physician: Sully Moss Attestation: This service has been performed in part by a resident under the direction of a teaching physician.I, Sully Moss, performed the service, or was physically present during the critical, or acevedo portions of the service, furnished by the resident. I participated in the management of the patient.
[2019-08-22] MEDS ORDERED: Lidocaine 2% VISCOUS* 15 ML UDC ONE (14:51)
[2019-08-22] MEDS ORDERED: Naloxone* 0.4 MG/ML 1 ML VIAL ONE (14:51)
[2019-08-22] MEDS ORDERED: fentaNYL* 50 MCG/ML 2 ML VIAL (100 MCG VIAL) ONE (14:51)
[2019-08-22] MEDS ORDERED: Flumazenil* 0.1 MG/ML 5 ML MDV ONE (14:51)
[2019-08-22] MEDS ORDERED: Midazolam* 1 MG/ML 5 ML VIAL (5 MG) ONE ×2 (14:51→15:14)
--- NOTE | 2019-08-22 16:58 | TEE ---
*[facility]* [place] [address] Fax #: [phone] Transesophageal Echocardiogram Patient: Regulo Denise : 1975 Study Date: 08/22/2019 Age: 44 Gender: M HR: 77 bpm Height: 70 in /177.8 cm BSA: 2.17 m^2 Weight: 218.5 lb /99.3 kg BMI: 31.4 kg/m^2 *[employer] Operator: * Miya Amaya RDCS RN *Referring Physician: * Carley ArmstrongReading Physician: * Lul Baker MD Indications: Bacteremia. History: Parotid gland stone with parotitis. Bacteremia. Former IV drug use. Risk factors: Former tobacco use. Conclusions Summary: - Left ventricle: Systolic function is normal. The estimated ejection fraction is 55-60%. Wall motion is normal; there are no regional wall motion abnormalities. - Left atrium: There is no evidence of a thrombus in the atrial cavity or appendage. - Atrial septum: There is a patent foramen ovale by color flow Doppler and agitated saline. The bubble study is positive on Image 31. - Mitral valve: There is no evidence of a vegetation. There is trace regurgitation. - Aortic valve: There is no evidence of a vegetation. There is no evidence of stenosis. - Pulmonic valve: There is no evidence of a vegetation. Study data: Diagnostic Transesophageal Echocardiogram Consent: The risks and benefits of the procedure, including alternatives were discussed with the patient and/or their health care quality assurance representative and written informed consent was obtained. Procedure: Initial setup: The patient was brought to the laboratory in the fasting state.Intravenous access was obtained. Surface ECG leads, heart rate, heart rhythm, blood pressure measurements, pulse oximetric signals, and mainstream end-tidal CO2 tracings were monitored throughout the procedure. Sedation. Moderate sedation was administered by nursing staff. History and physical as well as labs were reviewed. An oral bite block was inserted for protection of oral dentition. The patient was placed in the left lateral decubitus position. Topical anesthesia was obtained using viscous lidocaine. A transesophageal probe was inserted by the attending squeegee operator without difficulty. Transesophageal echocardiography was performed. Image quality was good and all standard views were attempted within the limitations of patient tolerance and safety. Multiple 2D, color flow Doppler and spectral Doppler images were obtained. The transesophageal probe was removed. A bubble study was performed. Location: Procedure room. Patient status: Inpatient. Patient room number: 415-02. Study completion: The patient tolerated the procedure well. There were no complications. Administered medications: Midazolam 5 mg IV. Fentanyl 50 mcg IV. Rhythm: Normal sinus rhythm. Findings Left ventricle: The cavity size is normal. Systolic function is normal. The estimated ejection fraction is 55-60%. Wall motion is normal; there are no regional wall motion abnormalities. Right ventricle: The cavity size is normal. Systolic function is normal. Left atrium: The atrium is mildly dilated. The appendage is of normal size. There is no evidence of a thrombus in the atrial cavity or appendage. Right atrium: The atrium is normal in size. Atrial septum: There is a patent foramen ovale by color flow Doppler and agitated saline. The bubble study is positive on Image 31. Mitral valve: The leaflets are normal thickness. There is no evidence of a vegetation. There is no evidence of stenosis. There is trace regurgitation. Aortic valve: The valve is trileaflet. The leaflets are normal thickness. There is no evidence of a vegetation. There is no evidence of stenosis. There is no regurgitation. Tricuspid valve: The valve is structurally normal. There is no evidence of a vegetation. There is no significant regurgitation. Pulmonic valve: The valve is structurally normal. There is no evidence of a vegetation. There is trace regurgitation. Aorta: The aortic root appears normal. The ascending aorta is not dilated. There is minimal atherosclerotic plaque seen in the visualized segments of the aorta. Pericardium: There is no pericardial effusion. Pulmonary arteries: The main pulmonary artery is normal-sized. Systemic veins: Inferior vena cava: The vessel is normal in size. Superior vena cava: The vessel is appears normal. Pulmonary veins: The pulmonary veins appear normal. One vein is well seen and interrogated with Doppler. Measurements Aortic valve Value Ref Mitral valve continued Value Ref Patricia diam, ED 2.0 cm ---- Decel time 155 ms ---- Peak v, S 1.7 m/sec ---- Peak grad, D 4.0 mm Hg ---- VTI, S 30.7 cm ---- Peak E/A ratio 1.3 ---- Mean grad, S 6.0 mm Hg ---- Peak grad, S 12.0 mm Hg ---- Aortic root Value Ref Root diam 3.0 cm <4.3 Mitral valve Value Ref Peak E 1 m/sec ---- Ascending aorta Value Ref Peak A 0.76 m/sec ---- AAo AP diam, S 2.5 cm ---- Legend: (L) and (H) mery values outside specified reference range. Prepared and electronically signed by Lul Baker MD 08/22/2019 16:58
[2019-08-22] MEDS: cefTRIAXone(*) 2 GM in NS 0.9% 100 ML* 100 ML IVPB SCH (17:11)
[2019-08-22 17:16] VITALS: BP 150/90
[2019-08-22] MEDS ORDERED: Enoxaparin(*) 40 MG/0.4 ML SYR SUBCUT SCH (21:00)
--- NOTE | 2019-08-23 06:29 | DS ---
DISCHARGE SUMMARY: DATE OF ADMISSION: 08/19/19 DATE OF DISCHARGE: 08/22/19 PRIMARY CARE PROVIDER: None. PRIMARY DIAGNOSES: 1. Right parotitis with obstructing stone. 2. Streptococcus anginosus bacteremia. 3. Poor dentition. 4. Obesity. CONSULTS: 1. Dr. Tyler Wolf of Infectious Disease. 2. Dr. Cordova of ENT. PROCEDURES: Sialolith removal on 08/19/19. DISCHARGE MEDICATIONS: 1. Augmentin 875 mg twice a day until 08/28/19. 2. Tylenol 625 mg every 6 hours as needed for pain. HISTORY OF PRESENT ILLNESS: Mr. Denise is a 44-year-old male with a history of IV drug use, in remission for 6 years, who initially presented to the emergency room 2 days prior to this presentation with what he thought was a dental infection. The patient had complained of right-sided facial swelling associated with pain. During that visit, he was found febrile with a temperature of 100.2 and leukocyte esterase of 13.3. At that time, a maxillofacial CT showed a right parotid sialadenitis secondary to an obstructing stone located in the distal aspect of the parotid duct measuring 1.1 cm in length with associated inflammation of the right parotid gland and adjacent tissues and associated cervical lymphadenopathy. As there was no ENT coverage that day in the emergency room, [facility] was contacted, and after discussing the case with ENT at that institution, the recommendation was for the patient to be discharged with p.o. antibiotics and to follow up with ENT as an outpatient. The patient was sent home with Augmentin, and while he was adherent to this medication, he continued to have significant pain. He had not been able to tolerate solid food for this reason. While he had no further episode of fever or chills, his blood cultures eventually resulted positive 4/4 with Streptococcus anginosus, so he was called and asked to return to the emergency room for further evaluation. HOSPITAL COURSE: In the emergency room, the patient was afebrile with vital signs within normal limits. He had significant right-sided facial edema with significant pain on palpation. On inspection of the oral cavity, he had very poor dentition with multiple teeth caries, broken and very foul smelling. ENT was contacted who performed a sialolith removal, which resulted in significant purulent drainage. He was initially kept on cefepime, but after sensitivity, switched to ceftriaxone. Infectious Disease was consulted, who recommended a TTE and then a SHARRI to explore for valvular vegetations. SHARRI resulted negative for infectious source and ID recommended switching the patient to Augmentin to complete a 10- day total course of antibiotics. The patient's repeat blood cultures were without growth. The patient was recommended to follow up with ENT, ID, and dentist on discharge, and also to establish care with primary care physician. PERTINENT DIAGNOSTIC STUDIES: CBC notable for mild anemia to 13.2 with abnormal baseline. BMP is unremarkable with normal renal function. CRP decreased after antibiotics from 141 to 104. UA remarkable for ketones on admission. 10/20 blood cultures from 08/17/19 with Streptococcus anginosus, sensitive to ampicillin, cefepime, and ceftriaxone, resistant to tetracycline with repeat blood cultures negative. Transthoracic echocardiogram, LV systolic function normal with EF 55% to 60%, wall motion normal. No regional wall motion abnormalities. RV systolic function normal. MV with trace regurgitation. AV and TV without significant regurgitation or stenosis. Pericardium without significant effusion. Pulmonary artery systolic pressure cannot be accurately estimated. SHARRI official read pending at this time, but discussion with intelligence officer basic reports negative for vegetations or any other abnormalities. Calculus of the right parotid gland, pathology report pending at the time of discharge. DISCHARGE PLAN: The patient will be discharged home to continue Augmentin to complete a total of 10-day course starting from initiation of cefepime in the emergency room. He will follow up with ID and ENT for his recent severe infection requiring hospitalization and parotitis with obstructive stone, status post sialolith removal. He was on no home medications before and was only discharged on the antibiotic. The patient was given return precautions which include, but are not limited to, worsening swelling or pain of right parotid or recurrence of fever, chills, or inability to tolerate p.o. DIET: Healthy diet, low in processed foods. ACTIVITY: As tolerated. DISPOSITION: Home. CONDITION: Good. TIME SPENT: Approximately 60 minutes was spent on discharge of this patient, more than half of which was spent on care coordination at bedside for interview and exam. [id number] #: [id number] MTDD
== END 2019-08-22 18:15 | disposition home or self-care (01) | DRG 155 ==
LOC: ED 16:30 → MED 17:22
PROVIDERS: ADMIT Internal Medicine; ATTEND Internal Medicine
PROC: 0CC Mouth and Throat, Extirpation (ICD-10-PCS; principal; 2019-08-19)
PROC: B24BZZ4 Ultrasonography of Heart with Aorta, Transesophageal (ICD-10-PCS; 2019-08-19)
DX: K11.5 Sialolithiasis (principal); R78.81 Bacteremia; Z16.29 Resistance to other single specified antibiotic; K11.20 Sialoadenitis, unspecified; B95.4 Other streptococcus as the cause of diseases classified elsewhere; E66.9 Obesity, unspecified; K02.9 Dental caries, unspecified; D64.9 Anemia, unspecified; R03.0 Elevated blood-pressure reading, without diagnosis of hypertension; K04.7 Periapical abscess without sinus; I34.0 Nonrheumatic mitral (valve) insufficiency; Z72.89 Other problems related to lifestyle; Z87.891 Personal history of nicotine dependence; Z68.31 Body mass index [BMI] 31.0-31.9, adult
CPT/HCPCS: 36415; 80048; 80053; 81003; 81015; 83605; 84484; 85025; 85610; 85730; 86140; 87040; 87086; 88300; 90686; 93306; 93312; 93325; 99156; 99157; 99283; A9270-GY; J0692; J0696; J1200; J1644; J1885; J2250; J2270; J2310; J2405; J3010